=== PATIENT | male | born 1960 | race Caucasian/White ===

== ENCOUNTER 2021-12-07 06:19 | Outpatient (CLI) | payer MEDICAID | END 2021-12-07 06:20 | disposition critical access hospital (66) | LOC: EMS 06:19 | DX: Z04.3 Encounter for examination and observation following other accident (principal); M79.631 Pain in right forearm | CPT/HCPCS: A0425; A0429 ==

== ENCOUNTER 2021-12-07 06:42 | Emergency (ER) | payer MEDICAID ==
--- NOTE | 2021-12-07 07:22 | ED Physician Documentation ---
PD HPI UPPER EXT INJURY - Stated complaint Stated Complaint: GLF - Chief complaint Chief Complaint: Trauma Ext - History obtained from History obtained from: Patient - History of Present Illness Location: Right, Forearm Type of injury: Fall (he says he tripped on rug when getting up to bathroom. Had been drinking. Remembers event and denies LOC.) Where injury occurred: Home Timing - onset: How many hours ago (1-2), Last night Timing - duration: Hours Timing - details: Abrupt onset, Still present Worsened by: Moving, Palpating Associated symptoms: Swelling. No: Weakness, Numbness Contributing factors: No: Anticoagulated, Prior ortho surgery Similar symptoms before: Has not had sx before Recently seen: Not recently seen Review of Systems Constitutional: denies: Fever Nose: denies: Rhinorrhea / runny nose, Congestion Throat: denies: Sore throat Respiratory: denies: Cough Skin: reports: Abrasion (s) (forehead). denies: Laceration (s) PD PAST MEDICAL HISTORY - Past Medical History Past Medical History: No - Past Surgical History Past Surgical History: No - Present Medications Home Medications: Ambulatory Orders Medication Instructions Recorded Confirmed HYDROcod/ACETAM 5/325 [[place] 5/325] 1 ea PO Q6H PRN #15 tablet 12/07/21 Naproxen 500 mg PO BID 10 Days #20 tab.sr 12/07/21 - Allergies Allergies/Adverse Reactions: Allergies Allergy/AdvReac Type Severity Reaction Status Date / Time No Known Drug Allergies Allergy Verified 12/07/21 06:51 - Social History Does the pt smoke?: Yes Smoking Status: Current every day smoker Does the pt drink ETOH?: Yes ETOH Use: Liquor Does the pt have substance abuse?: No - Immunizations Immunizations are current?: No Immunizations: TDAP >10years/unknown - POLST Patient has POLST: No PD ED PE NORMAL - Vitals Vital signs reviewed: Yes - General General: Alert and oriented X 3, Well developed/nourished - HEENT HEENT: PERRL (medial right sclera with area of redness c/w subconjunctival hemorrhage. ), EOMI, Other (abrasion right forehead, without tenderness. ) - Neck Neck: Supple, no meningeal sign, No bony TTP, No adenopathy - Cardiac Cardiac: RRR, No murmur - Respiratory Respiratory: Clear bilaterally, Other (no chestwall tenderness) - Abdomen Abdomen: Soft, Non tender - Back Back: No spinal TTP - Derm Derm: Normal color, Warm and dry - Extremities Extremities: Other (Mid forearm with tenderness and swelling along the ulnar and dorsal aspect. No obvious angulation. He has good distal sensation pulses and capillary refill. Display Carver is diminished due to pain in the forearm.) - Neuro Neuro: Alert and oriented X 3, No motor deficit, No sensory deficit, Normal speech Results - Vitals Vitals: Vital Signs - 24 hr 12/07/21 06:45 Temperature 36.3 C L Heart Rate 90 Respiratory 18 Rate Blood Pressure 149/113 H O2 Saturation 96 Oxygen O2 Source Room air - Rads (name of study) right forearm Radiology: Prelim report reviewed (ulnar shaft fx, nondisplaced. ), See rad report Procedures - Splint (location) right forearm Splint applied by: Tech Type of splint: Fiberglass, Sugar tong Other: Patient tolerated well, No complications, Neurovascular intact, Sling provided PD MEDICAL DECISION MAKING - ED course Complexity details: reviewed results (ulnar fracture. Radius is okay. ), considered differential (accidental fall described well, without concussive symptoms. Has forearm fracture as main pain issue. ), d/w patient ED course: The patient changed his choice on pharmacy prior to discharge, so initial [facility] cancelled and then re-sent to [facility]. Departure - Departure Disposition: 01 Home, Self Care Clinical Impression: Subconjunctival hematoma Fall from slip, trip, or stumble Qualifiers: Encounter type: initial encounter Qualified Code(s): W01.0XXA - Fall on same level from slipping, tripping and stumbling without subsequent striking against object, initial encounter Forehead abrasion Qualifiers: Encounter type: initial encounter Qualified Code(s): S00.81XA - Abrasion of other part of head, initial encounter Ulnar shaft fracture Qualifiers: Encounter type: initial encounter Fracture type: closed Fracture morphology: transverse Fracture alignment: nondisplaced Laterality: right Qualified Code(s): S52.224A - Nondisplaced transverse fracture of shaft of right ulna, initial encounter for closed fracture Condition: Stable Record reviewed to determine appropriate education?: Yes Instructions: ED Fx Upper Ext Follow-Up: Ramiro Simmons MD [Provider Admit Priv/Credential] - Prescriptions: Naproxen 500 mg PO BID 10 Days #20 tab.sr HYDROcod/ACETAM 5/325 [[place] 5/325] 1 ea PO Q6H PRN #15 tablet PRN Reason: Pain Comments: The splint in place and keep it clean and dry. Ice elevate and rest your forearm often to reduce swelling over the next several days. Use a sling to help decrease motion through the arm and shoulder. The worst pain will be there for several days with the acuteness of the fracture and also the swelling. As the swelling goes down this will improve a fair amount over a few days. The bone will then start callusing together and have less motion and still feel better again at a week to week and a half. He will follow up with orthopedics in about the next week, call later today for an appointment. At that point they will reassess it and change to a cast most likely. This will take about 4 to 6 weeks to heal up fully however. Use some anti-inflammatory such as naproxen twice daily with food for the next week to week and a half. To that add Tylenol every 4-6 hours if needed for pain or hydrocodone if needed for worse pain. I would anticipate needing the opioid pain medicine just over the first several days. I transmitted your prescriptions to [facility] in [place]. I am prescribing a short course of narcotic pain medication for you. These are potentially dangerous and addictive medications that should be used carefully. These medications may constipate you. Take an gdjr-vij-zhouuol stool softener such as docusate twice daily with plenty of water while taking these medications. If you go 24 hours without a bowel movement, take [id number]-[id number] MiraLAX, per package instructions. Do not drink or drive while taking these medications. If you received narcotic or sedating medications while in the emergency departme nt do not drive for 24 hours. Store this medication in a safe, secure place and out of reach of children. It is a violation of federal law to give or sell this medication to another person or to use in a manner other than prescribed. The ED will not refill narcotic prescriptions, including prescriptions lost or stolen. You can dispose of unwanted medications at the [facility]'s office or at several pharmacies such as [facility].
[2021-12-07] MEDS ORDERED: IBUPROFEN 600 MG TABLET PO STA (07:29)
[2021-12-07] MEDS ORDERED: HYDROcod/ACETAM 5/325 MG TABLET PO STA (07:29)
--- NOTE | 2021-12-07 08:17 | XRAY Report ---
PROCEDURE: Forearm RT INDICATIONS: fell/injured RFA, c/o pain TECHNIQUE: 2 views of the forearm were acquired. COMPARISON: None FINDINGS: Bones: Mildly displaced fracture of the mid/distal ulna. No suspicious bony lesions. Soft tissues: No suspicious soft tissue calcifications or masses. IMPRESSION: Ulnar fracture. Concordant with preliminary interpretation. Reviewed by: Giulia Lopes MD on 12/07/2021 8:15 AM [facility] Approved by: Giulia Lopes MD on 12/07/2021 8:15 AM [facility] Station ID: [id number]
[2021-12-07 08:42] VITALS: BP 140/88
== END 2021-12-07 08:42 | disposition home or self-care (01) ==
LOC: EDUNIT# → ED 06:42
DX: S52.221A Displaced transverse fracture of shaft of right ulna, initial encounter for closed fracture (principal); S00.81XA Abrasion of other part of head, initial encounter; W01.0XXA Fall on same level from slipping, tripping and stumbling without subsequent striking against object, initial encounter; F17.200 Nicotine dependence, unspecified, uncomplicated; H11.30 Conjunctival hemorrhage, unspecified eye
CPT/HCPCS: 29105; 73090; 99283; 99284; A9270

== ENCOUNTER 2021-12-14 08:15 | Outpatient (CLI) | payer MEDICAID ==
--- NOTE | 2021-12-14 15:34 | XRAY Report ---
PROCEDURE: Forearm RT INDICATIONS: RIGHT ARM PAIN TECHNIQUE: 2 views of the forearm were acquired. COMPARISON: X-ray forearm 12/07/2021 FINDINGS: Bones: Comminuted fracture within the mid ulna shaft. Fracture lucencies appear slightly more numerou s on current exam. Alignment is unchanged. No suspicious bony lesions. Soft tissues: No suspicious soft tissue calcifications or masses. IMPRESSION: Comminuted mid ulnar fracture with appearance of more fracture lucencies when compared to prior exam. This could be positional in nature as alignment is stable. Continued interval follow-up is recommend ed. Reviewed by: Riri Tolliver MD on 12/14/2021 3:32 PM PST Approved by: Riri Tolliver MD on 12/14/2021 3:32 PM PST Station ID: [id number]
== END 2021-12-14 23:59 | disposition home or self-care (01) ==
LOC: DI.WOS 08:15
PROVIDERS: ATTEND Orthopaedic Surgery
DX: S52.251A Displaced comminuted fracture of shaft of ulna, right arm, initial encounter for closed fracture (principal)

== ENCOUNTER 2022-01-18 09:13 | Outpatient (CLI) | payer MEDICAID ==
--- NOTE | 2022-01-18 15:25 | XRAY Report ---
PROCEDURE: Forearm RT INDICATIONS: FORARM FX TECHNIQUE: 2 views of the forearm were acquired. COMPARISON: 12/14/2021 and 12/07/2021 FINDINGS: Bones: There is interval healing at mid to distal ulnar shaft fracture site with surrounding callus f ormation. A small volar and medially displaced fragment is seen. No new fracture or dislocation is se en. Forearm alignment is anatomic.. No suspicious bony lesions. Soft tissues: No suspicious soft tissue calcifications or masses. IMPRESSION: Interval healing at mid to distal ulnar shaft fracture site with a small displaced fragment as above. No other fracture or dislocation. Reviewed by: Rodolfo Da Silva MD on 01/18/2022 3:24 PM PST Approved by: Rodolfo Da Silva MD on 01/18/2022 3:24 PM PST Station ID: [id number]
== END 2022-01-18 09:14 | disposition home or self-care (01) ==
LOC: DI.WOS 09:13
PROVIDERS: ATTEND Orthopaedic Surgery
DX: S52.234D Nondisplaced oblique fracture of shaft of right ulna, subsequent encounter for closed fracture with routine healing (principal)

== ENCOUNTER 2022-02-15 08:00 | Outpatient (CLI) | payer MEDICAID ==
--- NOTE | 2022-02-15 13:05 | XRAY Report ---
PROCEDURE: Forearm RT INDICATIONS: FOREARM FRACTURE TECHNIQUE: 2 views of the forearm were acquired. COMPARISON: None FINDINGS: Bones: Comminuted fracture of the mid ulna with interval callus formation since the prior x-ray. No s uspicious bony lesions. Soft tissues: No suspicious soft tissue calcifications or masses. IMPRESSION: Healing fracture of the distal third of the ulna. Reviewed by: Moshe Lal on 02/15/2022 1:03 PM PDT Approved by: Moshe Lal on 02/15/2022 1:03 PM PDT Station ID: [id number]
== END 2022-02-15 23:59 | disposition home or self-care (01) ==
LOC: DI.WOS 08:00
PROVIDERS: ATTEND Orthopaedic Surgery
DX: S52.234D Nondisplaced oblique fracture of shaft of right ulna, subsequent encounter for closed fracture with routine healing (principal)